=== PATIENT | female | born 1990 | race African-American/Black ===

== ENCOUNTER 2019-04-16 20:13 | Emergency (ER) | payer MEDICAID ==
[~2019-04-16] VITALS: Ht 177.8 cm; Wt 93.0 kg
[2019-04-16 20:14] VITALS: BP 121/77
== END 2019-04-16 22:37 | disposition home or self-care (01) ==
LOC: ER 20:14
DX: S93.492A Sprain of other ligament of left ankle, initial encounter (principal); Z88.6 Allergy status to analgesic agent; W18.39XA Other fall on same level, initial encounter; Y93.89 Activity, other specified; Y92.89 Other specified places as the place of occurrence of the external cause; Y99.8 Other external cause status
CPT/HCPCS: 29515; 73610; 73620; 99284

== ENCOUNTER 2021-02-04 09:06 | Emergency (ER) | payer MEDICAID, OTHER ==
[~2021-02-04] VITALS: Ht 177.8 cm; Wt 96.3 kg
[2021-02-04] MEDS ORDERED: oxyCODONE/APAP 5-325mg tablet PO ONE (09:25)
[2021-02-04] MEDS ORDERED: dexamethasone sod phosphate 10mg/ml inj PO STA (10:07)
[2021-02-04 11:27] VITALS: BP 149/90
[2021-02-04] MEDS ORDERED: PENI500T2 PO (12:02)
== END 2021-02-04 12:22 | disposition home or self-care (01) ==
LOC: ER 09:06
DX: J02.0 Streptococcal pharyngitis (principal); Z88.6 Allergy status to analgesic agent; Z79.2 Long term (current) use of antibiotics
CPT/HCPCS: 87880; 99283; J1100